=== PATIENT | male | born 1980 | race African-American/Black ===

== ENCOUNTER 2017-12-25 00:06 | Emergency (ER) | payer OTHER ==
[~2017-12-25] VITALS: Ht 177.8 cm; Wt 94.0 kg
[2017-12-25] MEDS ORDERED: NORCO 5/3251 TABLET PO (02:20)
[2017-12-25 02:40] VITALS: BP 107/75
== END 2017-12-25 02:41 ==
LOC: EME 00:06
PROC: 3E0234Z Introduction of Serum, Toxoid and Vaccine into Muscle, Percutaneous Approach (ICD-10-PCS; principal; 2017-12-25)
DX: S02.2XXA Fracture of nasal bones, initial encounter for closed fracture (principal); S22.31XA Fracture of one rib, right side, initial encounter for closed fracture; S00.81XA Abrasion of other part of head, initial encounter; Y04.8XXA Assault by other bodily force, initial encounter
CPT/HCPCS: 70450; 70486; 71101; 73060; 99281; 99284

== ENCOUNTER 2018-03-07 18:14 | Emergency (ER) | payer OTHER ==
[~2018-03-07] VITALS: Ht 177.8 cm; Wt 82.6 kg
[~2018-03-07 18:14] MED LIST: NORCO 5/3251 TABLET PO
[2018-03-07] MEDS ORDERED: NORCO 7.5/321 TABLET PO (19:24)
[2018-03-07] MEDS ORDERED: MOTRIN800 MG PO (19:24)
[2018-03-07 19:30] VITALS: BP 111/79
== END 2018-03-07 19:53 | disposition home or self-care (01) ==
LOC: EME 18:14
PROC: 2W3CX1Z Immobilization of Right Lower Arm using Splint (ICD-10-PCS; principal; 2018-03-07)
DX: S62.326A Displaced fracture of shaft of fifth metacarpal bone, right hand, initial encounter for closed fracture (principal); W22.09XA Striking against other stationary object, initial encounter
CPT/HCPCS: 73130; 99281; 99284